=== PATIENT | male | born 1940 | race Caucasian/White ===

== ENCOUNTER 2022-07-13 19:13 | Inpatient (IN) | payer MEDICARE, BC ==
[~2022-07-13] VITALS: Ht 182.9 cm; Wt 90.7 kg
[~2022-07-13 19:13] MED LIST: ALFU10TA PO; ALLO300T2 PO; ASPI81TA31 PO; CARI350T27 PO; ESCI10TA PO; LEVO200T9 PO; MONT10TA22 PO; SIMV-49 PO; TRIA1CAP6 PO
[2022-07-13] MEDS ORDERED: IV NORMAL SALINE 1000 ML BAG IV ONE (19:30)
[2022-07-13 20:29] LABS: HEMATOCRIT 43.6 % (36.7-47.1); MEAN CORPUSCULAR HEMOGLOBIN 32.3 uug (23.8-33.4); MEAN CORPUSCULAR VOLUME 93.5 fL (73.0-96.2); PLATELET COUNT (AUTO) 172 K/uL (152-348)
[2022-07-13 20:37] LABS: CARBON DIOXIDE 21 mmol/L (21-32); CHLORIDE 104 mmol/L (98-107); CREATININE 1.8 mg/dL (0.6-1.3); GLUCOSE 196 mg/dL (74-106); POTASSIUM 4.1 mmol/L (3.5-5.1); UREA NITROGEN, BLOOD 30 mg/dL (7-18)
[2022-07-13] MEDS ORDERED: IV NS 1000 ML 1,000 ML IV ONE (20:45)
[2022-07-13 20:50] LABS: ALANINE AMINOTRANSFERASE 55 U/L (16-63); ALKALINE PHOSPHATASE 46 U/L (50-136); ASPARTATE AMINOTRANSFERASE 148 U/L (15-37); BILIRUBIN,DIRECT < 0.1 mg/dL (0.0-0.2); BILIRUBIN,TOTAL 0.3 mg/dL (0.2-1.0); TOTAL PROTEIN, SERUM 7.6 g/dL (6.4-8.2)
[2022-07-13 20:52] LABS: MAGNESIUM 1.9 mg/dL (1.8-2.4)
[2022-07-13 21:39] LABS: ETHANOL < 3 MG/DL (0-0)
[2022-07-13] MEDS ORDERED: MAGNESIUM SULFATE/D5W 200 ML ONE (21:44)
[2022-07-13 22:05] LABS: *BILIRUBIN,URIN NEGATIVE (NEGATIVE); *BLOOD, URINE 2+ (NEGATIVE); *CLARITY,URINE CLEAR (CLEAR); *COLOR,URINE YELLOW (YELLOW); *KETONES,URINE NEGATIVE (NEGATIVE); *UROBILINOGEN,URINE 0.2 E.U./dl (NORMAL); LEUKOCYTE ESTERASE ,URINE NEGATIVE (NEGATIVE); NITRITE, URINE NEGATIVE (NEGATIVE); PH,URINE 5.5 (5.0-8.0); UGLUCOSE TRACE (NEGATIVE)
[2022-07-13] MEDS: MAGNESIUM SULFATE/D5W 100 ML IV SCH ×2 (22:08→22:53)
[2022-07-13 22:14] LABS: BACTERIA,URINE FEW /HPF (NONE SEEN); SQUAMOUS EPITHELIAL CELL,UR FEW /HPF (NONE SEEN)
[2022-07-14] MEDS ORDERED: ONDANSETRON 4 MG/2 ML VIAL IV PRN
[2022-07-14] MEDS ORDERED: GABA600T12 PO (01:07)
[2022-07-14] MEDS ORDERED: METF-442 PO (01:07)
[2022-07-14] MEDS ORDERED: BUPR-53 PO (01:07)
[2022-07-14] MEDS ORDERED: RIVA20TA PO (01:07)
[2022-07-14] MEDS: IV 1/2NS 1000 ML 1,000 ML IV PRN (02:04)
[2022-07-14 07:14] LABS: HEMATOCRIT 39.5 % (36.7-47.1); MEAN CORPUSCULAR HEMOGLOBIN 32.3 uug (23.8-33.4); MEAN CORPUSCULAR VOLUME 93.8 fL (73.0-96.2); PLATELET COUNT (AUTO) 161 K/uL (152-348)
[2022-07-14 07:38] LABS: ALANINE AMINOTRANSFERASE 47 U/L (16-63); ALKALINE PHOSPHATASE 39 U/L (50-136); ASPARTATE AMINOTRANSFERASE 126 U/L (15-37); BILIRUBIN,TOTAL 0.3 mg/dL (0.2-1.0); CARBON DIOXIDE 23 mmol/L (21-32); CHLORIDE 107 mmol/L (98-107); CREATININE 1.4 mg/dL (0.6-1.3); GLUCOSE 138 mg/dL (74-106); MAGNESIUM 2.2 mg/dL (1.8-2.4); POTASSIUM 3.9 mmol/L (3.5-5.1); TOTAL PROTEIN, SERUM 6.8 g/dL (6.4-8.2); UREA NITROGEN, BLOOD 19 mg/dL (7-18)
[2022-07-14 07:49] LABS: THYROID STIMULATING HORMONE 1.523 mIU/mL (0.358-3.740)
[2022-07-14] MEDS: LEVOTHYROXINE SODIUM 200 MCG TABLET PO SCH (08:25)
[2022-07-14] MEDS ORDERED: MONTELUKAST SODIUM 10 MG TABLET PO SCH (09:00)
[2022-07-14] MEDS: GABAPENTIN 300 MG CAPSULE PO SCH ×3 (09:00→17:00)
[2022-07-14] MEDS ORDERED: ESCITALOPRAM OXALATE 10 MG TABLET PO SCH (09:00)
[2022-07-14] MEDS: PANTOPRAZOLE SODIUM 40 MG TABLET.DR PO SCH (09:00)
[2022-07-14] MEDS: ALFUZOSIN HCL 10 MG TAB.SR.24H PO SCH (09:00)
[2022-07-14] MEDS ORDERED: buPROPion XL 150 MG TAB.SR.24H PO SCH (09:00)
[2022-07-14] MEDS ORDERED: Medication Not On Formulary EA (Gabapentin 600 MG) PO SCH (09:00)
[2022-07-14] MEDS ORDERED: GABAPENTIN 300 MG CAPSULE ONE ×2 (09:30→16:14)
[2022-07-14] MEDS ORDERED: ESCITALOPRAM OXALATE 10 MG TABLET ONE (09:30)
[2022-07-14] MEDS ORDERED: MONTELUKAST SODIUM 10 MG TABLET ONE (09:31)
[2022-07-14] MEDS ORDERED: ALFUZOSIN HCL 10 MG TAB.SR.24H PO ONE (09:31)
[2022-07-14] MEDS ORDERED: DEXAMETHASONE 2 MG TABLET PO SCH (15:00)
[2022-07-14] MEDS: DEXAMETHASONE 4 MG TABLET PO SCH (15:00)
[2022-07-14] MEDS ORDERED: ACETAMINOPHEN 325 MG TABLET PO PRN ×2 (15:15)
[2022-07-14] MEDS ORDERED: DEXAMETHASONE 4 MG TABLET ONE (16:13)
[2022-07-14] MEDS ORDERED: OXYCODONE/APAP 5-325 MG TABLET ONE (16:13)
[2022-07-14] MEDS: OXYCODONE/APAP 5-325 MG TABLET PO PRN (16:15)
[2022-07-14] MEDS ORDERED: LISI10TA29 PO (16:27)
[2022-07-14] MEDS ORDERED: METO-357 PO (16:27)
[2022-07-14] MEDS ORDERED: RIVAROXABAN 10 MG TABLET PO ONE (17:00)
[2022-07-14] MEDS ORDERED: RIVAROXABAN 10 MG TABLET PO SCH (17:00)
[2022-07-14] MEDS ORDERED: REMDESIVIR (CHARGED) 200 MG in IV NORMAL SALINE 250 ML IV ONE (18:00)
[2022-07-14] MEDS ORDERED: RIVAROXABAN 10 MG TABLET ONE (20:05)
[2022-07-14] MEDS ORDERED: DOCUSATE SODIUM 100 MG CAPSULE PO ONE (20:51)
[2022-07-14] MEDS: DOCUSATE SODIUM 100 MG CAPSULE PO SCH (20:52)
[2022-07-14] MEDS ORDERED: DOCUSATE SODIUM 100 MG CAPSULE PO SCH (21:00)
[2022-07-15] MEDS ORDERED: OXYCODONE/APAP 5-325 MG TABLET ONE ×2 (01:39→10:53)
[2022-07-15] MEDS: OXYCODONE/APAP 5-325 MG TABLET PO PRN ×3 (01:43→18:01)
[2022-07-15 05:56] LABS: HEMATOCRIT 37.3 % (36.7-47.1); MEAN CORPUSCULAR HEMOGLOBIN 32.2 uug (23.8-33.4); MEAN CORPUSCULAR VOLUME 94.7 fL (73.0-96.2); PLATELET COUNT (AUTO) 129 K/uL (152-348)
[2022-07-15 06:24] LABS: ALANINE AMINOTRANSFERASE 43 U/L (16-63); ALKALINE PHOSPHATASE 46 U/L (50-136); ASPARTATE AMINOTRANSFERASE 91 U/L (15-37); BILIRUBIN,DIRECT 0.1 mg/dL (0.0-0.2); BILIRUBIN,TOTAL 0.3 mg/dL (0.2-1.0); CARBON DIOXIDE 23 mmol/L (21-32); CHLORIDE 104 mmol/L (98-107); CREATININE 1.5 mg/dL (0.6-1.3); GLUCOSE 230 mg/dL (74-106); MAGNESIUM 1.9 mg/dL (1.8-2.4); PHOSPHOROUS 2.7 mg/dL (2.5-4.9); POTASSIUM 4.9 mmol/L (3.5-5.1); TOTAL PROTEIN, SERUM 6.7 g/dL (6.4-8.2); UREA NITROGEN, BLOOD 17 mg/dL (7-18)
[2022-07-15 06:41] LABS: CREATINE KINASE, TOTAL 2235 U/L (39-308)
[2022-07-15] MEDS ORDERED: LEVOTHYROXINE SODIUM 75 MCG TABLET ONE (07:20)
[2022-07-15] MEDS ORDERED: LEVOTHYROXINE SODIUM 125 MCG TABLET ONE (07:21)
[2022-07-15] MEDS: LEVOTHYROXINE SODIUM 200 MCG TABLET PO SCH (07:26)
[2022-07-15] MEDS: GABAPENTIN 300 MG CAPSULE PO SCH ×3 (09:00→17:59)
[2022-07-15] MEDS ORDERED: ESCITALOPRAM OXALATE 10 MG TABLET PO SCH (09:00)
[2022-07-15] MEDS: ALFUZOSIN HCL 10 MG TAB.SR.24H PO SCH (09:00)
[2022-07-15] MEDS: PANTOPRAZOLE SODIUM 40 MG TABLET.DR PO SCH (09:00)
[2022-07-15] MEDS: DEXAMETHASONE 4 MG TABLET PO SCH (09:00)
[2022-07-15] MEDS ORDERED: buPROPion XL 150 MG TAB.SR.24H PO SCH (09:00)
[2022-07-15] MEDS ORDERED: GABAPENTIN 300 MG CAPSULE ONE (10:52)
[2022-07-15] MEDS ORDERED: DEXAMETHASONE 4 MG TABLET ONE (10:52)
[2022-07-15] MEDS ORDERED: PANTOPRAZOLE SODIUM 40 MG TABLET.DR PO ONE (10:53)
[2022-07-15] MEDS ORDERED: ALFUZOSIN HCL 10 MG TAB.SR.24H PO ONE (10:53)
[2022-07-15 11:55] VITALS: BP 116/57
[2022-07-15] MEDS: IV 1/2NS 1000 ML 1,000 ML IV PRN (14:39)
[2022-07-15 16:44] VITALS: BP 116/56
[2022-07-15] MEDS: RIVAROXABAN 10 MG TABLET PO SCH (17:59)
[2022-07-15] MEDS: MONTELUKAST SODIUM 10 MG TABLET PO SCH (17:59)
[2022-07-15] MEDS: REMDESIVIR (CHARGED) 100 MG in IV NORMAL SALINE 100 ML IV SCH (18:01)
[2022-07-15] MEDS ORDERED: IV NS 1000 ML 1,000 ML IV ONE (18:45)
[2022-07-15 20:00] VITALS: BP 109/63
[2022-07-15] MEDS: DOCUSATE SODIUM 100 MG CAPSULE PO SCH (21:16)
[2022-07-15] MEDS ORDERED: NAPROXEN 500 MG TABLET PO PRN (22:00)
[2022-07-15] MEDS ORDERED: DEXTROSE 50% 50 ML DISP.SYRIN IV PRN (22:00)
[2022-07-15] MEDS: BLOOD SUGAR DIAGNOSTIC 1 EACH STRIP VI SCH (22:13)
[2022-07-15] MEDS: INSULIN REGULAR, HUMAN 300 UNIT/3 ML VIAL SQ PRN (22:16)
[2022-07-15] MEDS ORDERED: ALBUTEROL SULFATE 8 GM HFA.AER.AD ONE (22:52)
[2022-07-16 04:00] VITALS: BP 126/66
[2022-07-16] MEDS: ALBUTEROL SULFATE 8 GM HFA.AER.AD IH PRN ×2 (04:30→16:25)
[2022-07-16] MEDS: OXYCODONE/APAP 5-325 MG TABLET PO PRN ×2 (04:46→15:22)
[2022-07-16] MEDS: LEVOTHYROXINE SODIUM 200 MCG TABLET PO SCH (06:04)
[2022-07-16] MEDS: BLOOD SUGAR DIAGNOSTIC 1 EACH STRIP VI SCH ×4 (07:32→20:53)
[2022-07-16 07:49] LABS: ALANINE AMINOTRANSFERASE 44 U/L (16-63); ALKALINE PHOSPHATASE 40 U/L (50-136); ASPARTATE AMINOTRANSFERASE 63 U/L (15-37); BILIRUBIN,TOTAL 0.2 mg/dL (0.2-1.0); CARBON DIOXIDE 26 mmol/L (21-32); CHLORIDE 104 mmol/L (98-107); CREATINE KINASE, TOTAL 989 U/L (39-308); CREATININE 1.3 mg/dL (0.6-1.3); GLUCOSE 163 mg/dL (74-106); MAGNESIUM 1.8 mg/dL (1.8-2.4); PHOSPHOROUS 2.6 mg/dL (2.5-4.9); POTASSIUM 4.2 mmol/L (3.5-5.1); TOTAL PROTEIN, SERUM 6.5 g/dL (6.4-8.2); UREA NITROGEN, BLOOD 19 mg/dL (7-18)
[2022-07-16 08:01] LABS: MEAN CORPUSCULAR HEMOGLOBIN 32.3 uug (23.8-33.4); MEAN CORPUSCULAR VOLUME 95.3 fL (73.0-96.2); PLATELET COUNT (AUTO) 150 K/uL (152-348)
[2022-07-16 08:18] LABS: BILIRUBIN,DIRECT < 0.1 mg/dL (0.0-0.2)
[2022-07-16] MEDS: DEXAMETHASONE 4 MG TABLET PO SCH (09:16)
[2022-07-16] MEDS: PANTOPRAZOLE SODIUM 40 MG TABLET.DR PO SCH (09:17)
[2022-07-16] MEDS: ALFUZOSIN HCL 10 MG TAB.SR.24H PO SCH (09:17)
[2022-07-16] MEDS: GABAPENTIN 300 MG CAPSULE PO SCH ×3 (09:17→17:39)
[2022-07-16 12:00] VITALS: BP 104/64
[2022-07-16] MEDS: NYSTATIN CREAM 30 GM TUBE TOP SCH ×2 (12:09→20:59)
[2022-07-16] MEDS: INSULIN REGULAR, HUMAN 300 UNIT/3 ML VIAL SQ PRN ×3 (12:23→20:56)
[2022-07-16 16:00] VITALS: BP 101/53
[2022-07-16] MEDS: MONTELUKAST SODIUM 10 MG TABLET PO SCH (17:40)
[2022-07-16] MEDS: RIVAROXABAN 10 MG TABLET PO SCH (17:41)
[2022-07-16] MEDS: REMDESIVIR (CHARGED) 100 MG in IV NORMAL SALINE 100 ML IV SCH (17:42)
[2022-07-16 20:00] VITALS: BP 106/55
[2022-07-16] MEDS: DOCUSATE SODIUM 100 MG CAPSULE PO SCH (20:44)
[2022-07-17 00:06] VITALS: BP 113/56
[2022-07-17 04:09] VITALS: BP 127/75
[2022-07-17] MEDS: IV NS 1000 ML 1,000 ML IV PRN ×2 (05:16→22:31)
[2022-07-17] MEDS: LEVOTHYROXINE SODIUM 200 MCG TABLET PO SCH (06:30)
[2022-07-17] MEDS: BLOOD SUGAR DIAGNOSTIC 1 EACH STRIP VI SCH ×4 (06:45→20:22)
[2022-07-17 06:54] LABS: HEMATOCRIT 36.9 % (36.7-47.1); MEAN CORPUSCULAR HEMOGLOBIN 32.6 uug (23.8-33.4); MEAN CORPUSCULAR VOLUME 95.5 fL (73.0-96.2); PLATELET COUNT (AUTO) 150 K/uL (152-348)
[2022-07-17 07:49] LABS: BILIRUBIN,DIRECT 0.1 mg/dL (0.0-0.2); BILIRUBIN,TOTAL 0.3 mg/dL (0.2-1.0); CREATININE 1.2 mg/dL (0.6-1.3); MAGNESIUM 1.8 mg/dL (1.8-2.4); PHOSPHOROUS 2.5 mg/dL (2.5-4.9); POTASSIUM 3.9 mmol/L (3.5-5.1); TOTAL PROTEIN, SERUM 6.5 g/dL (6.4-8.2)
[2022-07-17] MEDS ORDERED: FLUTICASONE/SALMETEROL 250/50 INHALER INH SCH (09:00)
[2022-07-17] MEDS: ALFUZOSIN HCL 10 MG TAB.SR.24H PO SCH (10:04)
[2022-07-17] MEDS: DEXAMETHASONE 4 MG TABLET PO SCH (10:04)
[2022-07-17] MEDS: OXYCODONE/APAP 5-325 MG TABLET PO PRN ×2 (10:05→20:46)
[2022-07-17] MEDS: PANTOPRAZOLE SODIUM 40 MG TABLET.DR PO SCH (10:05)
[2022-07-17] MEDS: GABAPENTIN 300 MG CAPSULE PO SCH ×3 (10:05→17:28)
[2022-07-17] MEDS: FLUTICASONE/VILANTEROL 1 EACH BLST.W.DEV INH SCH (10:05)
[2022-07-17] MEDS: NYSTATIN CREAM 30 GM TUBE TOP SCH ×2 (10:06→20:22)
[2022-07-17] MEDS ORDERED: REMEDY ESSENTIAL ZINC PASTE 113 GM TOP PRN (12:00)
[2022-07-17] MEDS: REMEDY ESSENTIAL ZINC PASTE 113 GM TOP SCH ×2 (12:09→20:22)
[2022-07-17 12:34] VITALS: BP 108/60
[2022-07-17 15:55] VITALS: BP 110/60
[2022-07-17] MEDS: RIVAROXABAN 10 MG TABLET PO SCH (17:27)
[2022-07-17] MEDS: REMDESIVIR (CHARGED) 100 MG in IV NORMAL SALINE 100 ML IV SCH (17:28)
[2022-07-17] MEDS: MONTELUKAST SODIUM 10 MG TABLET PO SCH (17:28)
[2022-07-17] MEDS: METFORMIN HCL 500 MG TABLET PO SCH (17:28)
[2022-07-17] MEDS: INSULIN REGULAR, HUMAN 300 UNIT/3 ML VIAL SQ PRN ×2 (17:59→20:21)
[2022-07-17 20:00] VITALS: BP 115/60
[2022-07-17] MEDS: DOCUSATE SODIUM 100 MG CAPSULE PO SCH (20:22)
[2022-07-18] VITALS: BP 102/54
[2022-07-18] MEDS: BLOOD SUGAR DIAGNOSTIC 1 EACH STRIP VI SCH ×5 (00:45→20:56)
[2022-07-18 04:00] VITALS: BP 109/55
[2022-07-18] MEDS: LEVOTHYROXINE SODIUM 200 MCG TABLET PO SCH (06:10)
[2022-07-18 07:08] LABS: HEMATOCRIT 36.4 % (36.7-47.1); MEAN CORPUSCULAR HEMOGLOBIN 32.5 uug (23.8-33.4); MEAN CORPUSCULAR VOLUME 95.1 fL (73.0-96.2); PLATELET COUNT (AUTO) 151 K/uL (152-348)
[2022-07-18 07:32] LABS: ALANINE AMINOTRANSFERASE 31 U/L (16-63); ALKALINE PHOSPHATASE 36 U/L (50-136); ASPARTATE AMINOTRANSFERASE 27 U/L (15-37); BILIRUBIN,DIRECT 0.1 mg/dL (0.0-0.2); BILIRUBIN,TOTAL 0.5 mg/dL (0.2-1.0); CARBON DIOXIDE 25 mmol/L (21-32); CHLORIDE 107 mmol/L (98-107); GLUCOSE 124 mg/dL (74-106); MAGNESIUM 1.8 mg/dL (1.8-2.4); PHOSPHOROUS 2.7 mg/dL (2.5-4.9); POTASSIUM 3.9 mmol/L (3.5-5.1); TOTAL PROTEIN, SERUM 6.1 g/dL (6.4-8.2); UREA NITROGEN, BLOOD 19 mg/dL (7-18)
[2022-07-18 09:10] LABS: FERRITIN 1401 ng/mL (26-388)
[2022-07-18] MEDS: GABAPENTIN 300 MG CAPSULE PO SCH ×3 (09:14→17:02)
[2022-07-18] MEDS: ALFUZOSIN HCL 10 MG TAB.SR.24H PO SCH (09:14)
[2022-07-18] MEDS: NAPROXEN 500 MG TABLET PO PRN (09:15)
[2022-07-18] MEDS: PANTOPRAZOLE SODIUM 40 MG TABLET.DR PO SCH (09:15)
[2022-07-18] MEDS: METFORMIN HCL 500 MG TABLET PO SCH ×2 (09:15→17:10)
[2022-07-18] MEDS: DEXAMETHASONE 4 MG TABLET PO SCH (09:15)
[2022-07-18] MEDS: FLUTICASONE/VILANTEROL 1 EACH BLST.W.DEV INH SCH (09:16)
[2022-07-18] MEDS: NYSTATIN CREAM 30 GM TUBE TOP SCH ×2 (09:16→20:41)
[2022-07-18] MEDS: REMEDY ESSENTIAL ZINC PASTE 113 GM TOP SCH ×2 (09:17→20:40)
[2022-07-18 11:00] VITALS: BP 113/52
[2022-07-18] MEDS: IV NS 1000 ML 1,000 ML IV PRN (11:29)
[2022-07-18 16:03] VITALS: BP 129/74
[2022-07-18] MEDS: RIVAROXABAN 10 MG TABLET PO SCH (17:03)
[2022-07-18] MEDS: REMDESIVIR (CHARGED) 100 MG in IV NORMAL SALINE 100 ML IV SCH (17:04)
[2022-07-18] MEDS: MONTELUKAST SODIUM 10 MG TABLET PO SCH (17:11)
[2022-07-18] MEDS: INSULIN REGULAR, HUMAN 300 UNIT/3 ML VIAL SQ PRN ×2 (17:35→20:57)
[2022-07-18 20:00] VITALS: BP 120/61
[2022-07-18] MEDS: DOCUSATE SODIUM 100 MG CAPSULE PO SCH (20:40)
[2022-07-19] VITALS: BP 125/72
[2022-07-19] MEDS: IV NS 1000 ML 1,000 ML IV PRN (01:32)
[2022-07-19 04:00] VITALS: BP 119/65
[2022-07-19] MEDS: LEVOTHYROXINE SODIUM 200 MCG TABLET PO SCH (06:30)
[2022-07-19] MEDS: BLOOD SUGAR DIAGNOSTIC 1 EACH STRIP VI SCH ×4 (06:35→21:27)
[2022-07-19] MEDS: OXYCODONE/APAP 5-325 MG TABLET PO PRN (06:56)
[2022-07-19 07:04] LABS: HEMATOCRIT 36.5 % (36.7-47.1); MEAN CORPUSCULAR HEMOGLOBIN 32.8 uug (23.8-33.4); MEAN CORPUSCULAR VOLUME 94.7 fL (73.0-96.2); PLATELET COUNT (AUTO) 167 K/uL (152-348)
[2022-07-19 07:15] LABS: CREATININE 1.1 mg/dL (0.6-1.3); POTASSIUM 3.7 mmol/L (3.5-5.1)
[2022-07-19] MEDS: METFORMIN HCL 500 MG TABLET PO SCH ×2 (08:34→17:14)
[2022-07-19] MEDS: PANTOPRAZOLE SODIUM 40 MG TABLET.DR PO SCH (08:34)
[2022-07-19] MEDS: GABAPENTIN 300 MG CAPSULE PO SCH ×3 (08:34→16:38)
[2022-07-19] MEDS: NAPROXEN 500 MG TABLET PO PRN (08:34)
[2022-07-19] MEDS: ALFUZOSIN HCL 10 MG TAB.SR.24H PO SCH (08:34)
[2022-07-19] MEDS: DEXAMETHASONE 4 MG TABLET PO SCH (08:35)
[2022-07-19] MEDS: REMEDY ESSENTIAL ZINC PASTE 113 GM TOP SCH ×2 (08:36→21:20)
[2022-07-19] MEDS: NYSTATIN CREAM 30 GM TUBE TOP SCH ×2 (08:36→21:20)
[2022-07-19] MEDS: FLUTICASONE/VILANTEROL 1 EACH BLST.W.DEV INH SCH (08:36)
[2022-07-19 11:58] VITALS: BP 121/64
[2022-07-19] MEDS: INSULIN REGULAR, HUMAN 300 UNIT/3 ML VIAL SQ PRN ×3 (12:20→21:28)
[2022-07-19 15:58] VITALS: BP 127/65
[2022-07-19] MEDS: RIVAROXABAN 10 MG TABLET PO SCH (16:39)
[2022-07-19] MEDS: MONTELUKAST SODIUM 10 MG TABLET PO SCH (17:14)
[2022-07-19 20:00] VITALS: BP 112/63
[2022-07-19] MEDS: DOCUSATE SODIUM 100 MG CAPSULE PO SCH ×2 (21:00→21:19)
[2022-07-20 04:00] VITALS: BP 139/79
[2022-07-20] MEDS: LEVOTHYROXINE SODIUM 200 MCG TABLET PO SCH (06:33)
[2022-07-20] MEDS: BLOOD SUGAR DIAGNOSTIC 1 EACH STRIP VI SCH ×3 (06:45→15:48)
[2022-07-20 07:08] LABS: MEAN CORPUSCULAR HEMOGLOBIN 32.4 uug (23.8-33.4); MEAN CORPUSCULAR VOLUME 95.7 fL (73.0-96.2); PLATELET COUNT (AUTO) 199 K/uL (152-348)
[2022-07-20 07:16] LABS: CARBON DIOXIDE 26 mmol/L (21-32); CHLORIDE 105 mmol/L (98-107); CREATININE 1.1 mg/dL (0.6-1.3); GLUCOSE 107 mg/dL (74-106); PHOSPHOROUS 3.4 mg/dL (2.5-4.9); POTASSIUM 3.7 mmol/L (3.5-5.1); UREA NITROGEN, BLOOD 19 mg/dL (7-18)
[2022-07-20] MEDS: PANTOPRAZOLE SODIUM 40 MG TABLET.DR PO SCH (08:16)
[2022-07-20] MEDS: GABAPENTIN 300 MG CAPSULE PO SCH ×3 (08:16→16:46)
[2022-07-20] MEDS: ALFUZOSIN HCL 10 MG TAB.SR.24H PO SCH (08:16)
[2022-07-20] MEDS: DEXAMETHASONE 4 MG TABLET PO SCH (08:16)
[2022-07-20] MEDS: METFORMIN HCL 500 MG TABLET PO SCH (08:16)
[2022-07-20] MEDS: REMEDY ESSENTIAL ZINC PASTE 113 GM TOP SCH (08:17)
[2022-07-20] MEDS: NYSTATIN CREAM 30 GM TUBE TOP SCH (08:18)
[2022-07-20] MEDS: FLUTICASONE/VILANTEROL 1 EACH BLST.W.DEV INH SCH (08:18)
[2022-07-20] MEDS ORDERED: DOCU-141 PO (11:47)
[2022-07-20] MEDS ORDERED: ALBU8HFA4 IH (11:47)
[2022-07-20] MEDS ORDERED: FLUT1BLS INH (11:47)
[2022-07-20] MEDS ORDERED: DEXA4TAB2 PO (11:47)
[2022-07-20] MEDS ORDERED: NYST15CR TOP (11:48)
[2022-07-20] MEDS ORDERED: PANT40TA49 PO (11:48)
[2022-07-20] MEDS ORDERED: MONT10TA33 PO (11:48)
[2022-07-20] MEDS: INSULIN REGULAR, HUMAN 300 UNIT/3 ML VIAL SQ PRN (11:52)
[2022-07-20 12:00] VITALS: BP 131/72
[2022-07-20] MEDS ORDERED: BENZ-13 PO (12:21)
[2022-07-20] MEDS: OXYCODONE/APAP 5-325 MG TABLET PO PRN ×2 (14:58→15:39)
[2022-07-20 16:00] VITALS: BP 116/81
[2022-07-20] MEDS: RIVAROXABAN 10 MG TABLET PO SCH (16:46)
== END 2022-07-20 17:55 | disposition home health service (06) | DRG 177 ==
LOC: ER 19:15 → TRANSITION 23:00 → TELE3 07-15 10:57 → MEDSURG3 07-19 18:13
PROVIDERS: ADMIT Internal Medicine; ATTEND Nurse Practitioner Acute Care
PROC: XW033E5 Introduction of Remdesivir Anti-infective into Peripheral Vein, Percutaneous Approach, New Technology Group 5 (ICD-10-PCS; principal; 2022-07-14)
DX: U07.1 COVID-19 (principal); J12.82 Pneumonia due to coronavirus disease 2019; J96.01 Acute respiratory failure with hypoxia; N17.0 Acute kidney failure with tubular necrosis; M62.82 Rhabdomyolysis; E44.0 Moderate protein-calorie malnutrition; J44.0 Chronic obstructive pulmonary disease with (acute) lower respiratory infection; E87.1 Hypo-osmolality and hyponatremia; N40.1 Benign prostatic hyperplasia with lower urinary tract symptoms; Z68.27 Body mass index [BMI] 27.0-27.9, adult; R00.0 Tachycardia, unspecified; Z91.81 History of falling; E03.9 Hypothyroidism, unspecified; L30.4 Erythema intertrigo; I48.91 Unspecified atrial fibrillation; Z87.891 Personal history of nicotine dependence; I10 Essential (primary) hypertension; E86.1 Hypovolemia; D69.6 Thrombocytopenia, unspecified; R53.1 Weakness; Z74.09 Other reduced mobility
CPT/HCPCS: 36415; 71045; 73502; 83605; 83735; 84100; 84443; 84484; 85025; 85610; 85730; 86140; 87040; 87086; 93005; A4663; G0378; G0480; J1815; J3475; J3535; J7040; J8499; J8540